=== PATIENT | female | born 1990 | race Caucasian/White ===

== ENCOUNTER 2019-08-04 14:57 | Emergency (ER) | payer OTHER, SELFPAY ==
--- NOTE | ~2019-08-04 | XR_ITS ---
EXAMINATION: XR chest 1V portable INDICATION: Shortness of breath, fever and chills TECHNIQUE: Portable AP chest at 1523 hours COMPARISON: 10/28/2017 FINDINGS: The lungs are free of acute opacities. There is no pleural effusion or pneumothorax. The ca rdiomediastinal silhouette is normal. The visualized bones and soft tissues are unremarkable. IMPRESSION: 1. No acute cardiopulmonary abnormality. Reviewed, dictated and finalized at location A.
[2019-08-04 15:06] VITALS: BP 141/89; PULSE 104; RESP 13; TEMP 38.5; O2SAT 99
[2019-08-04 15:10] VITALS: O2SAT 99
[2019-08-04] MEDS: FAMOTIDINE 20 MG/2 ML VIAL IV PUSH (15:25)
[2019-08-04] MEDS: SODIUM CHLORIDE 0.9% IV 1,000 ML 999 ML IV CONT ×2 (15:25→16:11)
[2019-08-04 15:29] VITALS: BP 129/89; PULSE 101; RESP 13; O2SAT 97
[2019-08-04 15:33] LABS: Basophils Percent Auto 0.3 % (0.2-1.2); Eosinophils Percent Auto 1.2 % (0-4.4); Hematocrit 39.8 % (37.0-47.0); Hemoglobin 13.3 g/dL (12.0-15.0); Immature Granulocyte Absolute 0.01 K/mm3 (0.00-0.031); Immature Granulocyte Percent A 0.3 % (0-0.5); Lymphocytes Absolute Auto 0.95 K/mm3 (0.9-3.2); Lymphocytes Percent Auto 28.4 % (18.3-44.2); Mean Corpuscular HGB Conc 33.4 g/dl (32-36); Mean Corpuscular Hemoglobin 27.8 pg (26-34); Mean Corpuscular Volume 83.3 fl (80-100); Mean Platelet Volume 11.5 fl (7.4-10.4); Monocytes Absolute Auto 0.5 K/mm3 (0.1-0.6); Monocytes Percent Auto 14.9 % (2.6-8.5); Neutrophils Absolute Auto 1.8 K/mm3 (1.3-6.7); Neutrophils Percent Auto 54.9 % (45.5-73.1); Platelet Count Result 228 k/mm3 (150-375); Red Blood Count 4.78 M/mm3 (4.2-5.4); Red Cell Distribution Width 13.8 % (11.5-14.5); White Blood Count 3.4 K/mm3 (4.5-10.0)
--- NOTE | 2019-08-04 15:44 | ED.FEVER ---
HPI - Fever General Chief Complaint: Fever Stated Complaint: COVID SX Time Seen by Provider: 08/04/19 15:04 Source: patient Mode of arrival: ambulatory Limitations: no limitations History of Present Illness HPI Narrative: Patient is a 29-year-old female who presents to emergency department for evaluation of fever chills body aches cough for the last 2 days noting that she just returned from [place] denies known sick contacts had outpatient COVID testing this morning patient notes some aching pain of the chest that occurs with breathing and coughing. Patient denies any vomiting diarrhea. Patient on arrival to emergency department in no distress has not taken anything for her symptoms Related Data Allergies Allergy/AdvReac Type Severity Reaction Status Date / Time cefuroxime Allergy Intermediate Hives Verified 08/04/19 15:09 levofloxacin Allergy Unknown Rash Verified 08/04/19 15:09 Review of Systems Review of Systems: All systems reviewed & are unremarkable except as noted in HPI and below PMFSH Past Medical History Medical History (Updated 08/04/19 @ 16:39 by Pancho Allen PA-C) Asthma Social History Social History Smoking status: Former smoker Alcohol intake: never Gender identity (if verbalized by the patient): Female Exam Narrative: Exam Narrative: GENERAL: Ill-appearing, obese, and in no acute distress. HEAD: Normocephalic, atraumatic. EYES: PERRLA and EOMI. ENT: Nares clear, no rhinorrhea or epistaxis. Mucous membranes moist. Oropharynx without tonsillar hypertrophy exudate or other lesions. NECK: Supple. No adenopathy or masses. CHEST: Clear to auscultation. No respiratory distress. No wheezes rales or rhonchi HEART: Regular rate and rhythm. No murmur heard. EXTREMITIES: Normal range of motion. No edema. SKIN: Warm, dry, no rash. NEURO: No focal deficits. Alert and oriented x3. Cranial nerves II through XII grossly intact PSYCH: Normal mood and affect. Course Reevaluation(s) Reevaluation #1: Patient in the room at this time in no distress resting comfortably aware of discussion with primary care agreeing to follow-up as directed and provided with reasons to return Consultations Consultation #1: Discussed case with patient's primary care doctor who will follow up with patient Date: 08/04/19 Time: 16:30 Vital Signs Vital signs: Vital Signs Temperature 101.3 F H 08/04/19 15:06 Pulse Rate 104 H 08/04/19 15:06 Respiratory Rate 13 08/04/19 15:06 Blood Pressure 141/89 H 08/04/19 15:06 Pulse Oximetry 99 08/04/19 15:06 Temperature 101.3 F H 08/04/19 15:06 Pulse Rate 101 H 08/04/19 15:29 Respiratory Rate 13 08/04/19 15:29 Blood Pressure 129/89 08/04/19 15:29 Pulse Oximetry 97 08/04/19 15:29 MDM - Fever MDM Narrative Medical decision making narrative: Patient in the room in no distress hydrated given medications with improvement nontoxic-appearing. Patient agreeing to self quarantining and follow with primary care as instructed. Patient provided with reasons to return. No high risk changes in the blood work or imaging. Lab Data Result diagrams: 08/04/19 15:18 08/04/19 15:18 Labs: Lab Results 08/04/19 08/04/19 08/04/19 Range/Units 15:18 15:18 15:28 WBC 3.4 L (4.5-10.0) K/mm3 RBC 4.78 (4.2-5.4) M/mm3 Hgb 13.3 (12.0-15.0) g/dL Hct 39.8 (37.0-47.0) % MCV 83.3 (80-100) fl MCH 27.8 (26-34) pg MCHC 33.4 (32-36) g/dl RDW 13.8 (11.5-14.5) % Plt Count 228 (150-375) k/mm3 MPV 11.5 H (7.4-10.4) fl Immature Gran % (Auto) 0.3 (0-0.5) % Neut % (Auto) 54.9 (45.5-73.1) % Lymph % (Auto) 28.4 (18.3-44.2) % [place] % (Auto) 14.9 H (2.6-8.5) % Eos % (Auto) 1.2 (0-4.4) % Baso % (Auto) 0.3 (0.2-1.2) % Lymph # (Auto) 0.95 (0.9-3.2) K/mm3 [place] # (Auto) 0.5 (0.1-0.6) K/mm3 Eos # (Auto) 0.0 (0-0.3)
[2019-08-04 15:45] LABS: Alanine Aminotransferase 25 U/L (4-35); Albumin Level 4.2 g/dL (3.5-5.1); Alkaline Phosphatase 107 U/L (38-126); Aspartate Amino Transferase 31 U/L (14-36); Bilirubin,Total 0.4 mg/dL (0.2-1.3); Blood Urea Nitrogen 9 mg/dL (7-17); Calcium 8.6 mg/dL (8.4-10.2); Carbon Dioxide 22 mmol/L (22-30); Chloride 103 mmol/L (98-107); Estimated CRCL calculation 107 ml/min; Estimated Glomerular Filt Rate > 60; Glucose 90 mg/dL (65-105); Sodium 135 mmol/L (137-145)
--- NOTE | 2019-08-04 15:53 | ECG_ITS ---
Measurements Intervals [place] Rate: 96 P: 35 [place]: 159 QRS: 25 QRSD: 77 T: 21 QT: 339 QTc: 429 Interpretive Statements SINUS RHYTHM BASELINE ARTIFACT- V5 NORMAL ECG Electronically Signed On 08-04-2019 15:57:11 CDT by Peter Hendrickson D.O.
[2019-08-04 15:55] LABS: Add Urine Microscopic? YES; Appearance Urine Cloudy (Clear); Bacteria Urine Trace /hpf; Bilirubin Urine Negative (Negative); Blood Urine Negative (Negative); Color Urine Yellow (Yellow); Glucose Urine UA Negative (Negative); Ketones Urine 1+ mg/dL (Negative); Leukocyte Esterase Ur 2+ LEU/UL (Negative); Mucus Urine Rare /lpf; Nitrate Urine Negative (Negative); Protein Urine Negative (Negative); Specific Grav Ur 1.015 (1.001-1.035); Squamous Epithelial Cell Urine Many /hpf (Few); Urobilinogen Urine Negative mg/dL (<2.0); WBC Urine 0-3 /hpf
[2019-08-04 17:16] VITALS: BP 114/79; PULSE 77; RESP 19; O2SAT 99
== END 2019-08-04 17:19 | disposition home or self-care (01) ==
PROVIDERS: Emergency Medicine Emergency Medical Services; Emergency Provider Emergency Medicine; PCP Family Medicine
DX: J06.9 Acute upper respiratory infection, unspecified (principal)
CPT/HCPCS: 36415; 71045; 80053; 81001; 81025; 85025; 93005; 96361; 96365; 96375; 99284; J0131; J1100; J7030

== ENCOUNTER 2020-03-09 07:58 | Emergency (ER) | payer OTHER, SELFPAY ==
--- NOTE | ~2020-03-09 | XR_ITS ---
EXAMINATION: XR ankle LT min 3V EXAM DATE: 03/09/2020 08:26 INDICATION: Initial encounter following injury, with pain of the left ankle. TECHNIQUE: Left ankle frontal, lateral and oblique projections obtained and reviewed. There is no pr ior study for comparison. FINDINGS: The left ankle mortise appears intact. There are no acute fractures or dislocations ident ified. There is no subcutaneous gas. The soft tissue is unremarkable. There are no radiopaque for eign bodies. IMPRESSION: No acute osseous findings. Reviewed, dictated and finalized at location A. AL CERAMIST IMPRESSION: No acute osseous findings.
--- NOTE | 2020-03-09 08:10 | ED.LOWEXIN ---
HPI - Extremity Injury (Lower) General Chief Complaint: Extremity Injury, Lower Stated Complaint: left ankle injury Time Seen by Provider: 03/09/20 08:10 History of Present Illness HPI Narrative: 29 yo female presents to the ED for an ankle injury. Slip and fall on the ice this morning. Left leg went out out the side and she heard a pop in her ankle. She has pain over the lateral malleolus. Moderate. No wounds. No other pain or injury. No weakness, numbness. Related Data Allergies Allergy/AdvReac Type Severity Reaction Status Date / Time cefuroxime Allergy Intermediate Hives Verified 11/09/19 10:01 levofloxacin Allergy Unknown Rash Verified 11/09/19 10:01 Review of Systems Review of Systems: All systems reviewed & are unremarkable except as noted in HPI and below Constitutional: Constitutional: Denies fever(s) and Denies weakness Cardiovascular: Cardiovascular: Denies chest pain Respiratory: Respiratory: Denies dyspnea Gastrointestinal: Gastrointestinal: Denies abdominal pain Musculoskeletal: Musculoskeletal: Denies back pain Neurologic: Denies dizziness, Denies numbness and Denies weakness [facility] Past Medical History Medical History Asthma Family History Family History Grandparent Hypertension Family history of coronary artery disease Other Family history of malignant neoplasm Social History Social History Smoking status: Former smoker Alcohol intake: never Gender identity (if verbalized by the patient): Female Exam Const: General: healthy appearing, no acute distress and alert Orientation/consciousness: patient oriented x3 HENMT: Head: normal to inspection Resp: Effort & Inspection: normal respiratory effort Cardio: Rate: regular rate Other: 2+ DP bilaterally Skin: General skin exam: normal color Wounds: no wounds Neuro: General: patient oriented x3 and moves all extremities Speech: normal speech Extrem: Other: Swelling and tenderness over left lateral malleolus Course Vital Signs Vital signs: Vital Signs Temperature 36.1 C L 03/09/20 08:13 Pulse Rate 85 03/09/20 08:13 Respiratory Rate 18 03/09/20 08:13 Blood Pressure 105/90 03/09/20 08:13 Pulse Oximetry 99 03/09/20 08:13 Temperature 36.1 C L 03/09/20 08:13 Pulse Rate 85 03/09/20 08:13 Respiratory Rate 18 03/09/20 08:13 Blood Pressure 105/90 03/09/20 08:13 Pulse Oximetry 99 03/09/20 08:13 MDM - Extremity Injury (Lower) Differential Diagnosis Differential diagnosis: Likely ankle sprain and strain and ankle fracture Medical Records Attestation: I reviewed the patient's medical records. Imaging Data Radiologist's impression: ITS Impressions Ankle X-Ray 03/09/20 08:29 IMPRESSION: No acute osseous findings. Discharge Plan Discharge Clinical Impression: Left ankle sprain Patient Disposition: Home, Self-Care Condition: Stable Instructions: Ankle Sprain (ED) Prescriptions: No Action loratadine [Claritin] 10 mg tablet 10 mg PO DAILY PRN (Reason: allergy symptoms) Qty: 10 RF: 0 famotidine [Pepcid] 20 mg tablet 20 mg PO BID Qty: 14 RF: 0 albuterol sulfate [ProAir HFA] 90 mcg/actuation HFA aerosol inhaler 1 puff INHALATION Q4H PRN (Reason: shortness of breath or wheezing) Qty: 6.7 RF: 1 Hold Instructions: Home Medication placed on hold at Doctor's office azithromycin 250 mg tablet See Rx Instructions PO .COMPLEX Qty: 6 RF: 0 Follow-up/Referrals: Cristhian Laughlin MD [Primary Care Provider] -
[2020-03-09 08:13] VITALS: BP 105/90; PULSE 85; RESP 18; TEMP 36.1; O2SAT 99
== END 2020-03-09 09:15 | disposition home or self-care (01) ==
PROVIDERS: Emergency Provider Emergency Medicine; Family Provider Family Medicine; PCP Family Medicine
DX: S93.402A Sprain of unspecified ligament of left ankle, initial encounter (principal); J45.909 Unspecified asthma, uncomplicated; Z87.891 Personal history of nicotine dependence; W00.0XXA Fall on same level due to ice and snow, initial encounter
CPT/HCPCS: 73610; 99283

== ENCOUNTER 2020-04-19 15:26 | Outpatient (CLI) | payer OTHER, SELFPAY ==
--- NOTE | ~2020-04-19 | XR_ITS ---
XR ankle LT min 3V 04/19/2020 15:50 Indication: Left ankle pain Procedure: 4 views left ankle Comparison: 03/09/2020 Findings: No fracture, subluxation or dislocation. Ankle mortise intact. Talar dome is normal. No foc al soft tissue abnormality. No foreign bodies. Impression: 1: No acute bone or joint abnormality. Reviewed, dictated and finalized at location A. [employer]IVER Impression: 1: No acute bone or joint abnormality.
== END 2020-04-19 15:27 | disposition home or self-care (01) ==
PROVIDERS: PCP Family Medicine; Visit Provider Physician Assistant Medical
DX: M25.572 Pain in left ankle and joints of left foot (principal)
CPT/HCPCS: 73610

== ENCOUNTER 2020-06-01 14:39 | Outpatient (CLI) | payer OTHER, SELFPAY ==
--- NOTE | ~2020-06-01 | US_ITS ---
EXAMINATION: US venous doppler [facility] DATE: 06/01/2020 15:27 INDICATION: Right lower limb pain. TECHNIQUE: Grayscale ultrasound images without and with compression and Doppler ultrasound images of the bilateral lower extremity veins were obtained. COMPARISON: None. FINDINGS: The visualized portions of right common femoral vein, profunda (deep) femoral vein, femoral vein, pop liteal vein, peroneal veins, posterior tibial veins, and greater saphenous vein outflow are patent. The visualized portions of left common femoral vein, profunda femoral vein, femoral vein, popliteal v ein, peroneal veins, posterior tibial veins, and greater saphenous vein outflow are patent. IMPRESSION: 1. No deep venous thrombosis. Reviewed, dictated and finalized at location B.
== END 2020-06-01 14:40 | disposition home or self-care (01) ==
PROVIDERS: PCP Family Medicine; Visit Provider Nurse Practitioner Family
DX: R22.41 Localized swelling, mass and lump, right lower limb (principal)
CPT/HCPCS: 93970

== ENCOUNTER → 2021-02-20 01:02 | Outpatient (CLI) | payer OTHER, SELFPAY ==
[2021-02-20 21:03] LABS: SARS-CoV-2 RNA PCR Negative
== END ==
PROVIDERS: PCP Family Medicine; Visit Provider Nurse Practitioner Family
DX: R68.89 Other general symptoms and signs (principal); Z20.822 Contact with and (suspected) exposure to COVID-19
CPT/HCPCS: C9803; U0003; U0005

== ENCOUNTER 2021-09-18 16:52 | Outpatient (CLI) | payer OTHER, SELFPAY ==
--- NOTE | ~2021-09-18 | XR_ITS ---
XR ankle RT min 3V DATE: 09/18/2021 17:07 INDICATION: Right ankle pain TECHNIQUE: 4 views COMPARISON: None FINDINGS: No fracture, dislocation or disruption of the ankle mortise. IMPRESSION: Negative Reviewed, dictated and finalized at location B. IMPRESSION: Negative
== END 2021-09-18 16:53 | disposition home or self-care (01) ==
PROVIDERS: PCP Family Medicine; Visit Provider Physician Assistant Medical
DX: M25.571 Pain in right ankle and joints of right foot (principal)
CPT/HCPCS: 73610

== ENCOUNTER 2021-11-30 14:50 | Emergency (ER) | payer MEDICAID, SELFPAY ==
[2021-11-30 15:00] VITALS: BP 129/83; PULSE 72; RESP 16; TEMP 35.9; O2SAT 99
--- NOTE | 2021-11-30 15:00 | ED.EXTPRO ---
HPI - Extremity Problem General Chief complaint: Extremity Injury, Lower Stated complaint: Right Leg/Calf Pain Time Seen by Provider: 11/30/21 15:00 Source: patient, RN notes reviewed and old records reviewed Mode of arrival: ambulatory Limitations: no limitations History of Present Illness HPI Narrative: 31-year-old female presents to the [facility] with complaints of right medial aspect this leg pain since this morning. Negative Homans sign. Walks with a normal gait. No redness. Minor swelling noted. Patient reports that her mom told her she might have a blood clot and needs to be seen. Positive pedal pulse. Sensation intact feet. Denies any chest pain or shortness of breath. Denies taking control. No long flights. Related Data Home Medications Medication Instructions Recorded Confirmed B1 100 mg-B6 50 mg-calc 50 tablet PO 06/11/21 06/11/21 mg-mag oxide 50 mg-chaste tree-eduardo tablet ([employer] Happy Cycle) ascorbate calcium (vitamin C) 500 500 mg PO DAILY 06/11/21 06/11/21 mg tablet cyanocobalamin (vitamin B-12) 50 50 mcg PO DAILY 06/11/21 06/11/21 mcg tablet (Vitamin B-12) magnesium 30 mg tablet 30 mg PO DAILY 06/11/21 06/11/21 omega-3 fatty acids 500 mg capsule 500 mg PO DAILY 06/11/21 06/11/21 tumeric 100 mg-jaxson 150 mg-olive cap PO 06/11/21 06/11/21 50 mg-oreg 150 mg-caprylate capsule zinc acetate 25 mg (zinc) capsule 25 mg PO DAILY 06/11/21 06/11/21 (Galzin) Iud 11/30/21 Allergies Allergy/AdvReac Type Severity Reaction Status Date / Time levofloxacin Allergy Unknown Rash Verified 06/11/21 16:49 Review of Systems Review of Systems: All systems reviewed & are unremarkable except as noted in HPI and below Constitutional: Constitutional: Reports no additional constitutional complaints, Denies chills and Denies fever(s) Eyes: Eyes: Reports no additional eye complaints ENT: Reports system reviewed and no additional complaints, except as documented Cardiovascular: Cardiovascular: Reports no additional cardiovascular complaints Respiratory: Respiratory: Reports no additional respiratory complaints Gastrointestinal: Gastrointestinal: Reports no additional gastrointestinal complaints Musculoskeletal: Musculoskeletal: Reports as per HPI Integumentary/Breasts: Skin/Breast: Reports system reviewed and no additional complaints, except as docu Neurologic: Reports system reviewed and no additional complaints, except as documented Psychiatric: Psychiatric: Reports no additional psychiatric complaints Allergic/Immunologic: Allergic/Immunologic: Reports no additional allergic/immunologic complaints PMFSH Past Medical History Medical History Asthma BMI 35.0-35.9,adult BMI 37.0-37.9, adult BMI 40.0-44.9, adult COVID-19 Left ankle swelling Sprain of ankle, left Family History Family History Grandparent Hypertension Family history of coronary artery disease Father Heart disease Mother No problems noted. Sibling Sibling No problems noted. 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 There is no relevant family history pertinent to the patient complaint. Exam Const: General: healthy appearing, no acute distress, alert and well nourished Nutritional Appearance: well nourished a
== END 2021-11-30 15:27 | disposition home or self-care (01) ==
PROVIDERS: Emergency Provider Nurse Practitioner; PCP Family Medicine
DX: S86.211A Strain of muscle(s) and tendon(s) of anterior muscle group at lower leg level, right leg, initial encounter (principal); X58.XXXA Exposure to other specified factors, initial encounter; J45.909 Unspecified asthma, uncomplicated; Z86.16 Personal history of COVID-19; F17.210 Nicotine dependence, cigarettes, uncomplicated
CPT/HCPCS: 99212; G0463

== ENCOUNTER 2021-12-23 13:38 | Emergency (ER) | payer OTHER, SELFPAY ==
[2021-12-23 13:58] VITALS: BP 113/66; PULSE 79; RESP 16; TEMP 36.1; O2SAT 100
--- NOTE | 2021-12-23 15:55 | ED.URI ---
HPI - URI/Sore Throat General Chief Complaint: Upper Respiratory Infection Stated Complaint: Sore Throat, Bodyaches Time Seen by Provider: 12/23/21 15:55 Source: patient Mode of arrival: ambulatory Limitations: no limitations History of Present Illness HPI Narrative: 31-year-old female presents with complaint of sore throat, fatigue, body aches, chills, fever since yesterday. States I feel like trash . Denies nausea vomiting diarrhea. Reports lymph nodes to neck are swollen. Is concerned she has strep throat. All systems reviewed and negative except as noted above. Related Data Home Medications Medication Instructions Recorded Confirmed B1 100 mg-B6 50 mg-calc 50 tablet PO 06/11/21 06/11/21 mg-mag oxide 50 mg-chaste tree-eduardo tablet ([employer] Happy Cycle) ascorbate calcium (vitamin C) 500 500 mg PO DAILY 06/11/21 06/11/21 mg tablet cyanocobalamin (vitamin B-12) 50 50 mcg PO DAILY 06/11/21 06/11/21 mcg tablet (Vitamin B-12) magnesium 30 mg tablet 30 mg PO DAILY 06/11/21 06/11/21 omega-3 fatty acids 500 mg capsule 500 mg PO DAILY 06/11/21 06/11/21 tumeric 100 mg-jaxson 150 mg-olive cap PO 06/11/21 06/11/21 50 mg-oreg 150 mg-caprylate capsule zinc acetate 25 mg (zinc) capsule 25 mg PO DAILY 06/11/21 06/11/21 (Galzin) Iud 11/30/21 Allergies Allergy/AdvReac Type Severity Reaction Status Date / Time levofloxacin Allergy Unknown Rash Verified 06/11/21 16:49 Review of Systems Review of Systems: CONSTITUTIONAL: Reports fever, chills, or sweats. EYES: Denies visual changes, redness, or discharge. ENT: Denies rhinorrhea, congestion. Reports sore throat. Denies otalgia. CARDIOVASCULAR: Denies chest pain, palpitations, or edema. RESPIRATORY: Denies cough or dyspnea. GASTROINTESTINAL: Denies abdominal pain, nausea, vomiting, or diarrhea. GENITOURINARY: Denies dysuria or hematuria. SKIN: Denies rash or itching. MUSCULOSKELETAL: Denies back pain, joint pain. Reportsmyalgia. NEUROLOGIC: Denies headache, numbness, or weakness. PSYCHIATRIC: Denies anxiety or depression. All other systems reviewed are negative, except as documented in HPI. [facility] Past Medical History Medical History Asthma BMI 35.0-35.9,adult BMI 37.0-37.9, adult BMI 40.0-44.9, adult COVID-19 Left ankle swelling Sprain of ankle, left Family History Family History Grandparent Hypertension Family history of coronary artery disease Father Heart disease Mother No problems noted. Sibling Sibling No problems noted. 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 There is no relevant family history pertinent to the presenting complaint. Exam Narrative: GENERAL: This is a well-nourished, well-developed patient. Patient is ill-appearing but no stress. HEAD: normocephalic, atraumatic. EYES: PERRL. Sclera clear/white. Vision is grossly intact. EARS: External ears normal, auditory canals clear and without drainage, TMs normal without perforation. Hearing grossly intact. NOSE: External nose normal with no obvious nasal discharge, nares without redness, no rhinorrhea. THROAT: Mucous membranes moist, Erythema to the pharynx, tonsils 1+ bilaterally. No exudates. NECK: Neck supple, Tender cervical enlarged lymphadenopathy. no masses or thyromegaly. CARDIOVASCULAR:
== END 2021-12-23 16:26 | disposition home or self-care (01) ==
PROVIDERS: Emergency Provider Nurse Practitioner Family; PCP Family Medicine
DX: J02.0 Streptococcal pharyngitis (principal); F17.210 Nicotine dependence, cigarettes, uncomplicated; Z86.16 Personal history of COVID-19
CPT/HCPCS: 87880; 99213; G0463

== ENCOUNTER 2022-09-05 10:30 | Outpatient (CLI) | payer OTHER, SELFPAY ==
--- NOTE | 2022-09-05 10:47 | ECG_ITS ---
Measurements Intervals [place] Rate: 76 P: 56 [place]: 168 QRS: 45 QRSD: 81 T: 42 QT: 378 QTc: 426 Interpretive Statements SINUS RHYTHM WITH SINUS ARRHYTHMIA POSSIBLE LEFT ATRIAL ENLARGEMENT RSR' IN V1 OR V2, PROBABLY NORMAL VARIANT BASELINE ARTIFACT- I, III, AVL BORDERLINE ECG COMPARED TO ECG 08/04/2019 15:11:34 SINUS ARRHYTHMIA NOW PRESENT Electronically Signed On 09-05-2022 12:16:40 CDT by Peter Hendrickson D.O.
== END 2022-09-05 10:31 | disposition home or self-care (01) ==
PROVIDERS: PCP Family Medicine; Visit Provider Obstetrics & Gynecology Gynecology
DX: I42.9 Cardiomyopathy, unspecified (principal); I49.8 Other specified cardiac arrhythmias
CPT/HCPCS: 93005

== ENCOUNTER 2022-09-09 00:14 | Day surgery (SDC) | payer OTHER, SELFPAY ==
[2022-09-02 08:35] VITALS: BMI 40.4
--- NOTE | 2022-09-02 08:42 | PC.NURSE ---
Report to the Outpatient Waiting Room, entrance under the green pavilion located off [facility], at time _0715_ on date _09-09-2022 _. Planned Procedure Time: _0915_. Time changes happen often and if your time is changed the preop area will call you the afternoon before. - You and your visitor will be asked to self-screen and do not enter if you have any COVID symptoms. - A mask is optional within the hospital at this time. Patients may have clear liquids (water, carbonated beverages, clear teas, apple juice) until 3 hours prior to surgery with a maximum of 20 ounces. - No food from midnight until time of surgery Take the following medications with a SIP of water the morning of surgery: ____None DO NOT STOP ANY OF YOUR OTHER PRESCRIPTION MEDICATIONS PRIOR TO SURGERY ?EXCEPT THE FOLLOWING Medications to discontinue per physician None Date to take last dose Please no make-up, nail estonian, hairspray, perfume, deodorant, or body powder the day of surgery. No jewelry (including any body piercings) or valuables the day of surgery, leave them at home. Please take a shower or bath the night before, or the morning of, surgery with an antibacterial soap. Wear comfortable, loose fitting clothing. - Jewelry must be removed prior to entering the operating room. Rings and piercings that are not removed may be cut off. - The hospital will not accept responsibility for valuables. - Please leave all valuables, including medications, at home the day of surgery. If you are going home after surgery, a licensed tow car driver must drive you home. - NO public transportation without another adult if you receive anesthesia. - We recommend that an adult stay with you for 24 hours following discharge. - We also recommend that you do not drive, make important decision, drink alcoholic beverages, or take any drugs that were not prescribed by your health care provider for at least 24 hours after your discharge time. Follow any additional instructions given to you from your surgeon. If you or anyone in your household have experienced Covid symptoms in the past week, please notify your surgeon or the nurse liaison at the phone number below for possible testing. Telephone instructions given to __Patient___and asked if any additional questions and then verbalized understanding. Patient advised to call surgeon office or pre surgery nurse liaison [phone] if any additional questions.
[2022-09-09] VITALS (9 sets, daily range): BP systolic 94–125; BP diastolic 50–70; PULSE 71–105; RESP 9–18; TEMP 36.1–36.7; O2SAT 97–100
--- NOTE | 2022-09-09 07:36 | WPDHPUPDATE1 ---
History and Physical Update Update Date/Time: 09/09/22 07:36 History and Physical has been reviewed, including an updated exam of the patient. There are NO changes in the patient's condition. Risks, benefits, and alternatives have been discussed and questions answered. Patient agrees to proceed with procedure.
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
[2022-09-09] MEDS: LACTATED RINGERS 1,000 ML 30 ML IV CONT (07:43)
[2022-09-09] MEDS: ACETAMINOPHEN 500 MG TABLET 1000 MG PO (07:44)
[2022-09-09] MEDS: KETOROLAC 15 MG/ML VIAL (*BKC) IV PUSH (07:44)
[2022-09-09] MEDS: FAMOTIDINE 20 MG/2 ML VIAL IV PUSH (07:47)
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
--- NOTE | 2022-09-09 10:18 | W.PM.PROC2 ---
Procedure Note - Detailed Date of Procedure 09/09/22 Pre-op Diagnosis Encounter for sterilization IUD removal Post-op Diagnosis Same Procedure Performed laparoscopic bilateral salpingectomy IUD removal Surgeon Phoebe Rivera MD Anesthesia General Findings IUD strings at the cervix normal-appearing tubes, ovaries, uterus Description of Procedure The patient is taken to the operating room and placed under anesthesia in the dorsal lithotomy position. She was prepped and draped in the usual sterile fashion. Staff drained the bladder with a sterile red rubber catheter. A bivalve speculum was placed in the vagina and the cervix grasped on the anterior lip with a tenaculum. The IUD strings are noted and the strings are grasped with a ring forceps removing the IUD intact. The IUD was discarded. The the acorn manipulator was placed and the speculum removed. Attention was turned to the abdomen where a vertical skin incision was made at the base of the umbilicus. The abdomen is tented with towel clamps and the Veress needle placed. The opening patient pressure was 6mmHg. Pneumoperitoneum was obtained to a patient pressure of 15mmHg. The Veress needle was then removed and the 5mm long trocar is placed. Intra-abdominal placement was confirmed with the laparoscope. The patient is placed in Trendelenburg and 2 5mm ports are placed under direct visualization in the left and right lower quadrant 2cm above the symphysis pubis. The right tube was brought into the surgical field with a blunt probe and grasped with an atraumatic grasper. The mesosalpinx is clamped, cut, cauterized with the LigaSure device. Once the cornua was reached the tube is crossclamped, cut, cauterized and the tube removed through the lower port. The identical procedure was performed on the opposite side. Good hemostasis is noted. All instruments are removed. Pneumoperitoneum was reduced. Skin incisions are closed using 4-0 nylon in an interrupted fashion. Vaginal instruments are removed. The patient was awakened from anesthesia and taken to recovery in stable condition. Sponge, needle, and instrument counts are correct per the OR staff. Estimated Blood Loss 10 Drains No Packing No Pathology Yes ( Bilateral fallopian tubes; IUD removed and discarded not sent for pathology) Complications No immediate complications Condition Stable Disposition PACU
[2022-09-09] MEDS: oxyCODONE HCL (*CRX) 5 MG TAB IR PO (12:04)
== END 2022-09-09 12:48 | disposition home or self-care (01) ==
PROVIDERS: PCP Family Medicine; Visit Provider Obstetrics & Gynecology Gynecology
PROC: (CPT 49320; principal; 2022-09-09 09:15)
DX: Z30.2 Encounter for sterilization (principal); Z30.432 Encounter for removal of intrauterine contraceptive device; J45.909 Unspecified asthma, uncomplicated; Z79.51 Long term (current) use of inhaled steroids; Z79.899 Other long term (current) drug therapy; Z87.820 Personal history of traumatic brain injury; Z87.891 Personal history of nicotine dependence; E66.01 Morbid (severe) obesity due to excess calories; Z68.41 Body mass index [BMI] 40.0-44.9, adult
CPT/HCPCS: 58661; 58301; 88302; A9270; J0330; J1100; J1885; J2250; J2405; J2704; J3010; J7120

== ENCOUNTER 2022-10-02 16:06 | Emergency (ER) | payer OTHER, SELFPAY ==
[2022-10-02 16:06] VITALS: BP 121/73; PULSE 82; RESP 16; TEMP 36.8; O2SAT 99
[2022-10-02 17:24] LABS: Basophils Percent Auto 0.5 % (0.2-1.2); Eosinophils Absolute Auto 0.3 K/mm3 (0-0.3); Eosinophils Percent Auto 3.3 % (0-4.4); Hematocrit 37.3 % (37.0-47.0); Hemoglobin 12.2 g/dL (12.0-15.0); Immature Granulocyte Absolute 0.03 K/mm3 (0.00-0.031); Immature Granulocyte Percent A 0.4 % (0-0.5); Lymphocytes Absolute Auto 2.26 K/mm3 (0.9-3.2); Lymphocytes Percent Auto 26.8 % (18.3-44.2); Mean Corpuscular HGB Conc 32.7 g/dl (32-36); Mean Corpuscular Hemoglobin 28.8 pg (26-34); Mean Corpuscular Volume 88.2 fl (80-100); Mean Platelet Volume 11.1 fl (7.4-10.4); Monocytes Absolute Auto 0.6 K/mm3 (0.1-0.6); Neutrophils Absolute Auto 5.2 K/mm3 (1.3-6.7); Platelet Count Result 257 k/mm3 (150-375); Red Blood Count 4.23 M/mm3 (4.2-5.4); Red Cell Distribution Width 13.1 % (11.5-14.5); White Blood Count 8.4 K/mm3 (4.5-10.0)
[2022-10-02 17:34] LABS: Anion Gap 13 mmol/L (8-16); Blood Urea Nitrogen 12 mg/dL (7-17); Calcium 8.8 mg/dL (8.4-10.2); Carbon Dioxide 25 mmol/L (22-30); Chloride 99 mmol/L (98-107); Estimated CRCL calculation 102 ml/min; Estimated Glomerular Filt Rate > 60; Glucose 130 mg/dL (65-110); Potassium 3.9 mmol/L (3.4-5.0); Sodium 137 mmol/L (137-145)
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
[2022-10-02 18:01] VITALS: BP 126/77; PULSE 77
[2022-10-02 18:02] VITALS: BP 130/80; PULSE 79
[2022-10-02 18:04] VITALS: BP 129/83; PULSE 87
[2022-10-02 18:18] LABS: Appearance Urine Turbid (Clear); Bacteria Urine None Seen /hpf; Bilirubin Urine Negative (Negative); Blood Urine 3+ (Negative); Color Urine Yellow (Yellow); Glucose Urine UA Negative (Negative); Ketones Urine Negative (Negative); Leukocyte Esterase Ur Negative LEU/UL (Negative); Nitrate Urine Negative (Negative); Non Pathogenic Casts 0-2; Protein Urine Negative (Negative); RBC Urine >100 /hpf (0-2); Specific Grav Ur 1.019 (1.001-1.035); Squamous Epithelial Cell Urine None seen /hpf (Few); WBC Urine 0-5 /hpf
[2022-10-02 18:25] LABS: Add Urine Microscopic? YES
[2022-10-02 18:45] VITALS: BP 129/85; PULSE 78; RESP 18; O2SAT 100
== END 2022-10-02 18:50 | disposition home or self-care (01) ==
PROVIDERS: Emergency Provider Physician Assistant; PCP Obstetrics & Gynecology Gynecology
DX: N92.0 Excessive and frequent menstruation with regular cycle (principal); J45.909 Unspecified asthma, uncomplicated; Z86.73 Personal history of transient ischemic attack (TIA), and cerebral infarction without residual deficits; Z87.891 Personal history of nicotine dependence
CPT/HCPCS: 36415; 80048; 81001; 81025; 85025; 99283

== ENCOUNTER 2023-01-30 09:14 | Outpatient (CLI) | payer OTHER, SELFPAY ==
--- NOTE | ~2023-01-30 | MMUS_ITS ---
EXAMINATION: MM diagnostic casey BI w tonie, US breast RT limited HISTORY: Bilateral predominantly lateral breast pain, greater on the left. Family history of breast c ancer. TECHNIQUE: Bilateral full field ML, MLO and CC and spot right MLO, MLO and CC 3-D tomosynthesis image s were performed and synthetic 2-D images were generated. CAD analysis was submitted and interpreted. High resolution upper outer quadrant and lower outer quadrant right breast ultrasound was performed. COMPARISON: None BREAST PARENCHYMAL COMPOSITION: There are scattered areas of fibroglandular density. FINDINGS: MAMMOGRAPHIC FINDINGS: There is greater fibroglandular density in the outer right breast compared to the left breast, partic ularly in the upper outer quadrant. No discrete reproducible mass lesion is noted. Ultrasound correla tion was obtained. No malignant calcification, skin thickening or retraction of either breast is detected. ULTRASOUND: No suspicious mass or shadowing, cyst or other significant abnormal finding is noted in the upper out er or lower outer quadrants of right breast IMPRESSION: 1. No mammographic or sonographic evidence of malignancy 2. Routine mammographic screening beginning by age 40 is recommended BI-RADS Category 1: Negative Reviewed, dictated and finalized at location A. STORE MANAGER IMPRESSION: 1. No mammographic or sonographic evidence of malignancy 2. Routine mammographic screening beginning by age 40 is recommended BI-RADS Category 1: Negative
== END 2023-01-30 09:15 | disposition home or self-care (01) ==
PROVIDERS: PCP Family Medicine; Visit Provider Obstetrics & Gynecology Gynecology
DX: Z80.3 Family history of malignant neoplasm of breast (principal)
CPT/HCPCS: 76642; 77062; 77066; G0279

== ENCOUNTER 2023-04-11 11:33 | Outpatient (CLI) | payer OTHER, SELFPAY ==
--- NOTE | ~2023-04-11 | XR_ITS ---
Left foot Technique: AP, oblique, and lateral views were obtained. Clinical History: Pain Findings: No acute fracture or dislocation is seen. Osseous alignment is anatomic. Joint spaces are p reserved without erosive or degenerative change. Soft tissues are unremarkable. Impression: Unremarkable left foot radiographs. Reviewed, dictated and finalized at location . STANT DIRECTOR OF FINANCIAL AID Impression: Unremarkable left foot radiographs.
== END 2023-04-11 11:34 | disposition home or self-care (01) ==
LOC: ANHIMG 11:39
PROVIDERS: PCP Family Medicine; Visit Provider Physician Assistant
DX: M79.672 Pain in left foot (principal)
CPT/HCPCS: 73630

== ENCOUNTER 2024-02-02 10:11 | Outpatient (CLI) | payer OTHER, SELFPAY ==
--- NOTE | ~2024-02-02 | MMUS_ITS ---
EXAMINATION TYPE: MM diagnostic casey BI w tonie, US breast LT limited COMPARISON: 01/30/2023 and dating back to 10/03/2011 REASON FOR STUDY: 33-year-old woman with a palpable abnormality within the left breast presents for d iagnostic evaluation. Significant family history of breast cancer diagnosed in the patient's mother ( in her 30s) as well as maternal aunt. TECHNIQUE: Bilateral mediolateral oblique and craniocaudal views were obtained digitally with 3-D ma mmogram (digital breast tomosynthesis) with CAD. Computer-aided detection was utilized in evaluation of this examination. Spot compression of the area of palpable concern was also performed. BREAST PARENCHYMAL COMPOSITION:Not Dense. There are scattered areas of fibroglandular density. FINDINGS: Stable parenchymal pattern without architectural distortion, significant asymmetry or suspicious micr ocalcifications. TECHNIQUE: Sonographic evaluation of the left breast was performed assessing grayscale appearance and color Dopp ler flow within the area of palpable concern. FINDINGS: There is a heterogenous background echotexture. At the 12:00 position of the left breast approximately 1 cm from the nipple is a subcentimeter renifo rm shaped focus measuring 2.4 x 1.9 x 1.6 mm, likely an intramammary lymph node. This focus does not correspond to the area of palpable concern. Sonographic evaluation of the remainder of the left breast demonstrates benign fibroglandular element s without a cystic or solid lesion of concern. IMPRESSION: No mammographic, tomographic or sonographic evidence to suggest the presence of malignancy. BI-RADS CATEGORY: 2: Benign findings. RECOMMENDATION: Limited Tyrer Samantha risk assessment was performed demonstrating a lifetime risk of developing breast cancer is 25.6% in this patient. Given this increased risk assessment, this patient would benefit fr om contrast-enhanced dynamic breast MRI as an adjunct to bilateral mammography screening. This patien t should be considered high risk screening. Reviewed, dictated and finalized at location A. ING CARRIER IMPRESSION: No mammographic, tomographic or sonographic evidence to suggest the presence of malignancy. BI-RADS CATEGORY: 2: Benign findings. RECOMMENDATION: Limited Tyrer Herscher risk assessment was performed demonstrating a lifetime ris k of developing breast cancer is 25.6% in this patient. Given this increased ri sk assessment, this patient would benefit from contrast-enhanced dynamic breast MRI as an adjunct to bilateral mammography screening. This patient should be c onsidered high risk screening.
== END 2024-02-02 10:12 | disposition home or self-care (01) ==
LOC: ANHIMG 10:13
PROVIDERS: PCP Family Medicine; Visit Provider Advanced Practice Midwife
DX: N63.25 Unspecified lump in the left breast, overlapping quadrants (principal); Z80.3 Family history of malignant neoplasm of breast
CPT/HCPCS: 76642; 77062; 77066; G0279

== ENCOUNTER 2024-02-12 12:40 | Emergency (ER) | payer OTHER, SELFPAY ==
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
[2024-02-12 12:47] VITALS: BP 116/71; PULSE 73; RESP 20; TEMP 36.4; O2SAT 99
[2024-02-12 13:50] LABS: EDINFLUASCREEN Negative (Negative); EDINFLUBSCREEN Negative (Negative); EDSTREPNEGPOS1 Negative (Negative)
== END 2024-02-12 14:07 | disposition home or self-care (01) ==
PROVIDERS: Emergency Provider Nurse Practitioner Family; PCP Family Medicine
DX: J06.9 Acute upper respiratory infection, unspecified (principal); J45.909 Unspecified asthma, uncomplicated; Z86.73 Personal history of transient ischemic attack (TIA), and cerebral infarction without residual deficits; Z87.891 Personal history of nicotine dependence
CPT/HCPCS: 87081; 87804; 87880; 99213; G0463